=== PATIENT | female | born 2000 | race Caucasian/White ===

== ENCOUNTER 2021-11-07 10:39 | Emergency (ER) | payer OTHER ==
[2021-11-07] MEDS ORDERED: methylPREDNISolone Sod Succ/PF 125 MG/2 ML VIAL ONE (11:08)
[2021-11-07] MEDS ORDERED: EPINEPHrine 1 MG/ML AMP ONE (11:09)
[2021-11-07] MEDS ORDERED: Famotidine/PF 20 mg/2ml Vial ONE (11:09)
[2021-11-07] MEDS ORDERED: Ondansetron PF 4 MG/2 ML Vial ONE (11:19)
== END 2021-11-07 14:15 | disposition home or self-care (01) ==
LOC: CSHERS 10:39
DX: T78.00XA Anaphylactic reaction due to unspecified food, initial encounter (principal)
CPT/HCPCS: 96361; 96365; 96372; 96375; J0171; J2405; J2930; S0028